=== PATIENT | male | born 1955 | race Caucasian/White ===

== ENCOUNTER → 2016-05-08 | Outpatient (CLI) | payer BC ==
[~2016-05-08] MED LIST: ASPIRIN E.C. 8181 M1 PO; CIALIS20 MG PO; GLUCOTROL XL10 MG PO; METFORMIN500 MG PO; NITROSTAT0.4 MG/TAB SL; ONE DAILY 50 PL1 TAB PO
== END ==
LOC: SUN.DIA 08:45
DX: E11.65 Type 2 diabetes mellitus with hyperglycemia (principal); Z71.3 Dietary counseling and surveillance; E78.5 Hyperlipidemia, unspecified

== ENCOUNTER → 2016-07-31 | Outpatient (CLI) | payer BC | LOC: SUN.DIA 13:13 | DX: E11.65 Type 2 diabetes mellitus with hyperglycemia (principal); Z79.84 Long term (current) use of oral hypoglycemic drugs; Z71.3 Dietary counseling and surveillance; E78.5 Hyperlipidemia, unspecified | CPT/HCPCS: G0108 ==

== ENCOUNTER → 2019-06-25 | Outpatient (CLI) | payer BC | LOC: DIA.ED 09:04 | DX: E11.9 Type 2 diabetes mellitus without complications (principal); Z79.84 Long term (current) use of oral hypoglycemic drugs; E78.5 Hyperlipidemia, unspecified | CPT/HCPCS: G0108 ==

== ENCOUNTER 2019-08-18 15:30 | Inpatient (IN) | payer BC ==
[~2019-08-18] VITALS: Ht 172.7 cm; Wt 64.0 kg
[2019-08-18] MEDS ORDERED: LANTUS100 U/ML SQ (16:49)
[2019-08-18] MEDS ORDERED: GLUCOPHAGE500 MG/TAB PO (16:51)
[2019-08-18 16:52] VITALS: BP 146/80; PULSE 74; TEMP 98.4
--- NOTE | 2019-08-18 18:20 | NUR ---
Pt up to room 314, escorted by admissions. Pt is A&O, independent, on room air. Pt denies SOB, N/V/D, chest pain, dizziness, abdominal pain. Pt only complains of itchiness which has been ongoing for weeks. Pt has 18G to RFA w/ NS @ 75ml/hr w/o complications. BLE edema noted 2+, Rt>Lt. Pt has scattered scabs over bilateral lower and upper extremities d/t scratching over the weeks. No other concerns expressed. med rec and admission completed. Dr. Leach in to assess patient.
[2019-08-18 18:46] LABS: ALANINE AMINOTRANSFERASE 185 U/L (4-49); AST,SGOT 291 U/L (15-37); BILIRUBIN UNCONJUGATED 1.8 mg/dL (0.0-1.1); BILIRUBIN,DIRECT 11.3 mg/dL (0.0-0.4); BILIRUBIN,TOTAL 13.1 mg/dL (0.0-1.0); TOTAL PROTEIN 6.6 gm/dL (6.4-8.2)
[2019-08-18 18:54] LABS: ACETAMINOPHEN < 10 ug/mL (10-30); ALKALINE PHOSPHATASE 1989 U/L (50-136); GAMMA GLUTAMYL TRANSPEPTIDASE 2222 U/L (15-73)
[2019-08-18 18:55] LABS: INR 0.9 (0.8-3.0); PROTHROMBIN TIME 10.2 SECONDS (9.7-12.8)
[2019-08-18 19:09] VITALS: BP 150/74; PULSE 68; TEMP 98.2
--- NOTE | 2019-08-18 21:00 | NUR ---
Patient assessed at this time. Alert and oriented x 4, and able to make needs known. Denies having pain and discomfort at this time. Peripheral IV to right forearm patent. Fluids running per orders. Denies SOB and dyspnea. LS CTA. Respirations even and unlabored. HRR. Capillary refill less than 3 seconds. Non-tenting skin turgor. Skin jaundiced. Scabs all over from scratching. BSAx4. Abdomen soft and non-tender. No edema. Voices no questions, needs, or concerns at this time. Resting in bed with call light within reach.
[2019-08-18 23:38] VITALS: BP 158/76; PULSE 76; TEMP 98.8
[2019-08-19 03:34] VITALS: BP 148/69; PULSE 74; TEMP 98.4
--- NOTE | 2019-08-19 03:59 | NUR ---
Patient's BS 49. Patient diaphoretic. Called to Dr. Gan. New order to change fluids to D5 1/2 NS at 75 ml/hr. Also, give D50 1 amp now. Recheck BS in 1 hour.
--- NOTE | 2019-08-19 04:53 | NUR ---
Patient's BS at this time 127.
[2019-08-19 06:12] LABS: BASO % 0.8 % (0.0-2.0); EOS # 0.1 (0.0-0.7); EOS % 1.6 % (0-4.0); GRAN # 3.5 (1.4-6.5); GRAN % 68.5 % (42.2-75.2); HEMOGLOBIN 10.8 g/dl (13.5-18.0); LYMPH # 0.6 (1.2-3.4); LYMPH % 11.8 % (20.0-51.0); MEAN CELL VOLUME 97 fl (80.0-100.0); MEAN CORPUSCULAR HEMOGLOBIN 33 pg (27.0-31.0); MEAN CORPUSCULAR HGB CONC 34 g/dl (33.0-37.0); MONO # 0.9 (0.1-0.6); MONO % 16.7 % (1.7-9.3); PLATELET COUNT 146 K/mm3 (130-400); RED BLOOD COUNT 3.23 M/mm3 (4.20-5.60); REDCELL DISTRIBUTION WIDTH-CV 18.5 % (11.5-14.5)
[2019-08-19 06:17] LABS: HEMATOCRIT 31.4 % (42.0-52.0)
[2019-08-19 06:25] LABS: BILIRUBIN UNCONJUGATED 1.9 mg/dL (0.0-1.1); BILIRUBIN,DIRECT 7.5 mg/dL (0.0-0.4); BILIRUBIN,TOTAL 9.3 mg/dL (0.0-1.0); CALCIUM 8.6 mg/dL (8.4-10.2); CREATININE, serum 0.62 (0.66-1.25); POTASSIUM 3.6 mmol/L (3.4-5.0)
[2019-08-19 06:30] LABS: ALBUMIN 2.6 gm/dL (3.5-5.0)
--- NOTE | 2019-08-19 06:30 | NUR ---
Patient's follow up BS had been 127 around 444. Reports feeling much better. Voices no questions, needs, or concers. Planning for MRCP, abdominal US, and Echo today. Has been NPO since midnight.
[2019-08-19 10:28] VITALS: BP 147/67; PULSE 67; TEMP 98.9
--- NOTE | 2019-08-19 11:37 | NUR ---
Road Patcher met with patient to discuss discharge planning. Patient lives with his , Enedelia (ph#[phone]) in [place]. 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 Patient sees Dr. Tong for primary care and obtains medications from [facility]. Patient states his insulin can get expensive but his medications have been changed a lot recently. Patient does not use any DME outside of his diabetes supplies and reports independence with ADLS. Patient is not sure if he has Advance Directives and asked BRAYAN to contact [employer] to ask. BARYAN contacted [employer] who advised they do not have Advance Directives completed but wanted to do this at some point. Enedelia requested BRAYAN send two blank DPOA-HC forms home with patient for them to complete. BRAYAN provided forms to patient. Enedelia advised that she will provide transportation home for patient upon discharge. SW to continue to follow as needed.
[2019-08-19 11:46] VITALS: BP 147/66; PULSE 67; TEMP 97.8
--- NOTE | 2019-08-19 12:30 | NUR ---
First visit from the flavoring maker. No needs right now.
[2019-08-19 15:40] VITALS: BP 155/69; PULSE 70; TEMP 98.5
[2019-08-19 16:38] LABS: HEPATITIS A ANTIBODY-IGM Negative (Negative); HEPATITIS B SURFACE ANTIBODY <2.0 (()); HEPATITIS B SURFACE ANTIGEN Negative (Negative); HEPATITIS C VIRUS ANTIBODY Negative (Negative)
--- NOTE | 2019-08-19 19:10 | NUR ---
patient is alert and oriented. MRI was done today. Patient blood sugar dropped to 59 at lunch time. He received orange juice, BG increase to 134. patient is resting in bed.
--- NOTE | 2019-08-19 20:00 | NUR ---
Patient assessed at this time. Denies having pain and discomfort. Denies having any questions, needs, or concerns at this time. Resting in bed with call light within reach.
[2019-08-19 20:10] VITALS: BP 163/87; PULSE 74; TEMP 97.7
[2019-08-19 23:55] VITALS: BP 162/77; PULSE 68; TEMP 97.9
--- NOTE | 2019-08-20 04:25 | NUR ---
Patient has been resting in bed with shift. Denies having pain and discomfort. Voices no questions, needs, or concerns at this time. Call light is within reach.
[2019-08-20 04:40] VITALS: BP 155/78; PULSE 69; TEMP 97.8
[2019-08-20 06:38] LABS: HEMOGLOBIN 10.8 g/dl (13.5-18.0); MEAN CELL VOLUME 98 fl (80.0-100.0); MEAN CORPUSCULAR HEMOGLOBIN 33 pg (27.0-31.0); MEAN CORPUSCULAR HGB CONC 34 g/dl (33.0-37.0); MEAN PLATELET VOLUME 11.5 fl (7.4-10.4); PLATELET COUNT 158 K/mm3 (130-400); REDCELL DISTRIBUTION WIDTH-CV 17.5 % (11.5-14.5)
[2019-08-20 06:48] LABS: ALBUMIN 2.9 gm/dL (3.5-5.0); BILIRUBIN,TOTAL 7.7 mg/dL (0.0-1.0); CREATININE, serum 0.71 (0.66-1.25); POTASSIUM 4.2 mmol/L (3.4-5.0); TOTAL PROTEIN 6.4 gm/dL (6.4-8.2)
[2019-08-20 06:56] LABS: HEMATOCRIT 32.2 % (42.0-52.0)
[2019-08-20 07:38] VITALS: BP 144/80; PULSE 85; TEMP 97.9
[2019-08-20 07:54] LABS: BAND 2 % (0-10); EOSINOPHIL 3 % (0-4); LYMPHOCYTE 25 % (20.0-51.0); NEUTROPHILS 61 % (42.0-75.2)
[2019-08-20 07:55] LABS: PLATELET ESTIMATE NORMAL (NORMAL); TARGET CELLS 1+
[2019-08-20] MEDS ORDERED: QUESTRAN4 GM/9 GM PO (10:00)
--- NOTE | 2019-08-20 10:21 | NUR ---
Irrigation Service Technician attended clinical rounds with the team and patient to discharge home today. Patient's , Enedelia was on speakerphone during rounds. No additional needs at this time.
[2019-08-20 11:43] VITALS: BP 127/76; PULSE 82; TEMP 97.7
--- NOTE | 2019-08-20 15:04 | NUR ---
patient is alert and oriented. denies any pain. complained of itching in the morning. skin color is jaundice. normal heart sound. clear breath sound. denies any pain. INT discontinued. patient was discharged with new medication order Cholestyramine Resin with discharge instruction on Jaundice.
== END 2019-08-20 14:00 | disposition home or self-care (01) | DRG 442 ==
LOC: MEDICAL 15:30
PROVIDERS: Physician Assistant; ADMIT Hospitalist
DX: E80.6 Other disorders of bilirubin metabolism (principal); K80.10 Calculus of gallbladder with chronic cholecystitis without obstruction; K70.11 Alcoholic hepatitis with ascites; T46.7X5A Adverse effect of peripheral vasodilators, initial encounter; L29.8 Other pruritus; E11.65 Type 2 diabetes mellitus with hyperglycemia; Z79.4 Long term (current) use of insulin; Z79.84 Long term (current) use of oral hypoglycemic drugs; F10.10 Alcohol abuse, uncomplicated; E78.5 Hyperlipidemia, unspecified; Z87.891 Personal history of nicotine dependence
CPT/HCPCS: 99223-AI; 99232-AI; 99239; J1815; J7030